=== PATIENT | female | born 1930 | race African-American/Black ===

== ENCOUNTER 2017-12-09 15:16 | Inpatient (IN) ==
[2017-12-09] MEDS ORDERED: ALBUTEROL/IPRATROPIUM 3 ML NEB RESP TX STA (15:37)
[2017-12-09] MEDS ORDERED: ORPHENADRINE 60 MG/2 ML VIAL IV STA (15:37)
[2017-12-09] MEDS ORDERED: methylPREDNISolone SOD SUC 125 MG/2 ML VIAL IV STA (15:37)
[2017-12-09] MEDS ORDERED: KETOROLAC 30 MG/1 ML VIAL IV STA (15:37)
[2017-12-09] MEDS ORDERED: ONDANSETRON 4 MG/2 ML VIAL IV STA (15:37)
[2017-12-09 15:53] LABS: Basophils % 0.4 % (0.0-0.8); Eosinophils # 0.1 10*3/uL (0.0-0.87); Eosinophils % 0.9 % (0.00-10.9); Hematocrit 36.9 VOL% (35.7-47.0); Hemoglobin 12.1 GM/DL (12.0-16.0); Immature Granulocytes % 0.4 %; Immature Granulocytes Absolute 0.03 #; Lymphocytes # 1.4 10*3/uL (1.4-4.0); Lymphocytes % 16.7 % (21.3-54.2); Mean Corpuscular HGB Conc 32.8 GM/DL (32-36); Mean Corpuscular Hemoglobin 28 PG (27-34); Mean Corpuscular Volume 85.8 FL (87-102); Mean Platelet Volume 9.3 FL (9.6-12.0); Monocytes # 0.9 10*3/uL (0.11-0.8); Monocytes % 10.2 % (1.7-12.7); Neutrophils # 6.1 10*3/uL (1.4-7.4); Neutrophils % 71.4 % (38.7-73.9); Platelet Count 137 T/CUMM (130-400); Red Cell Distribution Width 15.8 % (9.3-17.3); White Blood Count 8.5 T/CUMM (4-12)
[2017-12-09 16:06] LABS: PT Patient Result 10.7 SECS; Partial Thromboplastin Time 30.1 SECS (0-40)
[2017-12-09 16:11] LABS: Albumin 3.6 G/DL (3.4-5.0); Bilirubin,Total 0.6 MG/DL (0.2-1.0); Calcium 9.3 MG/DL (8.5-10.1); Osmolality,Calculated 282.4 MOS/KG (273-304); Potassium 4.1 MMOL/L (3.5-5.1); Total Protein 7.3 G/DL (6.4-8.3)
[2017-12-09] MEDS ORDERED: ASPIRIN 325 MG TABLET PO STA (16:23)
[2017-12-09] MEDS ORDERED: NITROGLYCERIN 2% OINT 1 INCH/GM PACK TOP STA (16:23)
[2017-12-09] MEDS ORDERED: NITROGLYCERIN 2% OINT 1 INCH/GM PACK TOP ONE (16:23)
[2017-12-09] MEDS ORDERED: ASPIRIN 325 MG TABLET ONE (16:23)
[2017-12-09] MEDS ORDERED: NITROGLYCERIN SL 0.4 MG TABLET SL PRN (17:58)
[2017-12-09] MEDS ORDERED: ZALEPLON 5 MG CAPSULE PO PRN (17:58)
[2017-12-09] MEDS ORDERED: MAGNESIUM SULF RIDER 2 GM in PREMIX 1 EACH IV PRN (19:12)
[2017-12-09] MEDS ORDERED: POTASSIUM CHLORIDE 20 MEQ TABLET PO PRN ×2 (19:12)
[2017-12-09] MEDS ORDERED: MAGNESIUM SULF RIDER 4 GM in PREMIX 1 EACH IV PRN (19:12)
[2017-12-09] MEDS ORDERED: cefTRIAXone 1,000 MG in SYRINGE 1 EACH IV SCH (20:00)
[2017-12-09] MEDS: ALBUTEROL/IPRATROPIUM 3 ML NEB RESP TX SCH (20:34)
[2017-12-09] MEDS: ATORVASTATIN 20 MG TABLET PO SCH (21:06)
[2017-12-09] MEDS: tiZANidine 4 MG TABLET PO SCH (21:06)
[2017-12-09] MEDS: METOPROLOL TARTRATE 25 MG TABLET PO SCH (21:06)
[2017-12-09] MEDS: ENOXAPARIN 80 MG/0.8 ML SYRINGE SUBCUT SCH (21:07)
[2017-12-09] MEDS: AZITHROMYCIN INJ 500 MG in SODIUM CHLORIDE 0.9% 250 ML IV SCH (21:15)
[2017-12-09 21:45] LABS: Apearance,Urine CLEAR (Clear); Bilirubin,Urine Negative (Negative); Blood, Urine Negative (Negative); Glucose,Urine (UA) 50 mg/dL (Negative); Ketones,Urine Negative (Negative); Mucus,Urine Occasional /LPF (Occasional); Nitrite,Urine Negative (Negative); Protein,Urine Negative; Squamous Epithelial Cell,Urine Occasional /HPF (0-10); Urine Color Straw (Yellow); Urine Specific Gravity 1.005 (1.001-1.035); Urine Urobilinogen < 2.0 EU/DL (0.2-1.0); WBC,Urine <1 /HPF (0-6)
[2017-12-10] MEDS: NITROGLYCERIN 2% OINT 1 INCH/GM PACK TOP SCH ×4 (00:59→18:19)
[2017-12-10] MEDS: ALBUTEROL/IPRATROPIUM 3 ML NEB RESP TX SCH ×4 (01:19→19:19)
[2017-12-10 02:56] LABS: Hematocrit 35.3 VOL% (35.7-47.0); Hemoglobin 11.6 GM/DL (12.0-16.0); Immature Granulocytes % 0.3 %; Immature Granulocytes Absolute 0.02 #; Lymphocytes # 0.6 10*3/uL (1.4-4.0); Mean Corpuscular HGB Conc 32.9 GM/DL (32-36); Mean Corpuscular Hemoglobin 28 PG (27-34); Mean Corpuscular Volume 84.9 FL (87-102); Mean Platelet Volume 9.6 FL (9.6-12.0); Monocytes # 0.1 10*3/uL (0.11-0.8); Monocytes % 1.4 % (1.7-12.7); Neutrophils # 5.6 10*3/uL (1.4-7.4); Neutrophils % 88.3 % (38.7-73.9); Platelet Count 141 T/CUMM (130-400); Red Blood Count 4.16 MC/CUMM (3.8-5.5); Red Cell Distribution Width 15.5 % (9.3-17.3); White Blood Count 6.4 T/CUMM (4-12)
[2017-12-10 03:15] LABS: Osmolality,Calculated 283.5 MOS/KG (273-304); Potassium 4.2 MMOL/L (3.5-5.1)
[2017-12-10 03:17] LABS: Risk Ratio 1.88
[2017-12-10] MEDS: LEVOTHYROXINE 50 MCG TABLET PO SCH (06:17)
[2017-12-10] MEDS ORDERED: FUROSEMIDE 40 MG/4 ML VIAL IV SCH (08:00)
[2017-12-10] MEDS ORDERED: PSEUDOEPHEDRINE 30 MG TABLET PO SCH (09:00)
[2017-12-10] MEDS: TOPIRAMATE 100 MG TABLET PO SCH (09:55)
[2017-12-10] MEDS: IRBESARTAN 150 MG TABLET PO SCH (09:55)
[2017-12-10] MEDS: METOPROLOL TARTRATE 25 MG TABLET PO SCH ×2 (09:55→21:05)
[2017-12-10] MEDS: ALPRAZolam 0.25 MG TABLET PO SCH (09:55)
[2017-12-10] MEDS: amLODIPine 5 MG TABLET PO SCH (09:55)
[2017-12-10] MEDS: CETIRIZINE 10 MG TABLET PO SCH (09:55)
[2017-12-10] MEDS: methylPREDNISolone SOD SUC 40 MG/1 ML VIAL IV SCH ×2 (09:55→21:04)
[2017-12-10] MEDS: ENOXAPARIN 80 MG/0.8 ML SYRINGE SUBCUT SCH ×3 (09:55→21:28)
[2017-12-10] MEDS: DULoxetine 20 MG CAPSULE PO SCH (09:55)
[2017-12-10] MEDS: CEFEPIME 1,000 MG in SYRINGE 1 EACH IV SCH ×2 (09:56→21:05)
[2017-12-10] MEDS: ASPIRIN CHEW 81 MG TABLET PO SCH (10:12)
[2017-12-10] MEDS: ACETAMINOPHEN 325 MG TABLET PO PRN (21:06)
[2017-12-10] MEDS: ATORVASTATIN 20 MG TABLET PO SCH (21:06)
[2017-12-10] MEDS: tiZANidine 4 MG TABLET PO SCH (21:06)
[2017-12-10] MEDS: AZITHROMYCIN INJ 500 MG in SODIUM CHLORIDE 0.9% 250 ML IV SCH (21:07)
[2017-12-11] MEDS: NITROGLYCERIN 2% OINT 1 INCH/GM PACK TOP SCH ×2 (00:12→05:43)
[2017-12-11] MEDS: ALBUTEROL/IPRATROPIUM 3 ML NEB RESP TX SCH ×4 (00:30→19:33)
[2017-12-11 03:56] LABS: Calcium 9.6 MG/DL (8.5-10.1); Potassium 4.4 MMOL/L (3.5-5.1)
[2017-12-11] MEDS: LEVOTHYROXINE 50 MCG TABLET PO SCH (06:07)
[2017-12-11] MEDS: METOPROLOL TARTRATE 25 MG TABLET PO SCH (08:55)
[2017-12-11] MEDS: ASPIRIN CHEW 81 MG TABLET PO SCH (08:55)
[2017-12-11] MEDS: IRBESARTAN 150 MG TABLET PO SCH (08:55)
[2017-12-11] MEDS: DULoxetine 20 MG CAPSULE PO SCH (08:55)
[2017-12-11] MEDS: amLODIPine 5 MG TABLET PO SCH (08:56)
[2017-12-11] MEDS: CETIRIZINE 10 MG TABLET PO SCH (08:56)
[2017-12-11] MEDS: ALPRAZolam 0.25 MG TABLET PO SCH (08:56)
[2017-12-11] MEDS: TOPIRAMATE 100 MG TABLET PO SCH (08:56)
[2017-12-11] MEDS: ENOXAPARIN 80 MG/0.8 ML SYRINGE SUBCUT SCH ×2 (08:58→21:47)
[2017-12-11] MEDS: methylPREDNISolone SOD SUC 40 MG/1 ML VIAL IV SCH ×2 (09:02→21:46)
[2017-12-11] MEDS: CEFEPIME 1,000 MG in SYRINGE 1 EACH IV SCH ×2 (09:06→21:47)
[2017-12-11] MEDS: ACETAMINOPHEN 325 MG TABLET PO PRN (14:45)
[2017-12-11] MEDS ORDERED: METOPROLOL TARTRATE 25 MG TABLET PO ONE (17:05)
[2017-12-11] MEDS: ACETAMINOPHEN 325 MG TABLET PO SCH ×2 (18:14→21:42)
[2017-12-11] MEDS: GABAPENTIN 100 MG CAPSULE PO SCH ×2 (18:15→21:44)
[2017-12-11] MEDS: AZITHROMYCIN 250 MG TABLET PO SCH (21:42)
[2017-12-11] MEDS: ATORVASTATIN 20 MG TABLET PO SCH (21:43)
[2017-12-11] MEDS: tiZANidine 4 MG TABLET PO SCH (21:44)
[2017-12-11] MEDS: METOPROLOL TARTRATE 50 MG TABLET PO SCH (21:45)
[2017-12-12] MEDS: ALBUTEROL/IPRATROPIUM 3 ML NEB RESP TX SCH ×4 (00:10→19:22)
[2017-12-12] MEDS: LEVOTHYROXINE 50 MCG TABLET PO SCH (05:51)
[2017-12-12] MEDS: TOPIRAMATE 100 MG TABLET PO SCH (09:18)
[2017-12-12] MEDS: METOPROLOL TARTRATE 50 MG TABLET PO SCH ×2 (09:19→22:04)
[2017-12-12] MEDS: ALPRAZolam 0.25 MG TABLET PO SCH (09:19)
[2017-12-12] MEDS: amLODIPine 5 MG TABLET PO SCH (09:19)
[2017-12-12] MEDS: DULoxetine 20 MG CAPSULE PO SCH (09:19)
[2017-12-12] MEDS: ASPIRIN CHEW 81 MG TABLET PO SCH (09:22)
[2017-12-12] MEDS: CETIRIZINE 10 MG TABLET PO SCH (09:22)
[2017-12-12] MEDS: GABAPENTIN 100 MG CAPSULE PO SCH ×3 (09:22→20:49)
[2017-12-12] MEDS: ENOXAPARIN 80 MG/0.8 ML SYRINGE SUBCUT SCH ×2 (09:23→20:50)
[2017-12-12] MEDS: IRBESARTAN 150 MG TABLET PO SCH (09:23)
[2017-12-12] MEDS: methylPREDNISolone SOD SUC 40 MG/1 ML VIAL IV SCH ×2 (09:56→20:45)
[2017-12-12] MEDS: CEFEPIME 1,000 MG in SYRINGE 1 EACH IV SCH ×2 (10:00→20:46)
[2017-12-12] MEDS: ACETAMINOPHEN 325 MG TABLET PO SCH ×2 (10:10→20:50)
[2017-12-12] MEDS ORDERED: NAPROXEN 250 MG TABLET PO ONE (18:47)
[2017-12-12] MEDS: tiZANidine 4 MG TABLET PO SCH (20:50)
[2017-12-12] MEDS: AZITHROMYCIN 250 MG TABLET PO SCH (20:50)
[2017-12-12] MEDS: ATORVASTATIN 20 MG TABLET PO SCH (20:50)
[2017-12-13] MEDS: ALBUTEROL/IPRATROPIUM 3 ML NEB RESP TX SCH ×4 (00:12→19:15)
[2017-12-13 02:15] LABS: Calcium 9.3 MG/DL (8.5-10.1); Osmolality,Calculated 285.4 MOS/KG (273-304)
[2017-12-13] MEDS: LEVOTHYROXINE 50 MCG TABLET PO SCH (06:19)
[2017-12-13] MEDS ORDERED: amLODIPine 10 MG TABLET PO SCH (11:08)
[2017-12-13] MEDS: ASPIRIN CHEW 81 MG TABLET PO SCH (11:10)
[2017-12-13] MEDS: IRBESARTAN 150 MG TABLET PO SCH (11:10)
[2017-12-13] MEDS: ENOXAPARIN 80 MG/0.8 ML SYRINGE SUBCUT SCH ×2 (11:11→21:16)
[2017-12-13] MEDS: METOPROLOL TARTRATE 50 MG TABLET PO SCH ×2 (11:11→21:15)
[2017-12-13] MEDS: GABAPENTIN 100 MG CAPSULE PO SCH ×3 (11:12→21:15)
[2017-12-13] MEDS: TOPIRAMATE 100 MG TABLET PO SCH (11:12)
[2017-12-13] MEDS: DULoxetine 20 MG CAPSULE PO SCH (11:12)
[2017-12-13] MEDS: ALPRAZolam 0.25 MG TABLET PO SCH (11:13)
[2017-12-13] MEDS: ACETAMINOPHEN 325 MG TABLET PO SCH ×2 (11:13→21:14)
[2017-12-13] MEDS: CETIRIZINE 10 MG TABLET PO SCH (11:14)
[2017-12-13] MEDS: methylPREDNISolone SOD SUC 40 MG/1 ML VIAL IV SCH ×2 (11:18→21:16)
[2017-12-13] MEDS: CEFEPIME 1,000 MG in SYRINGE 1 EACH IV SCH ×2 (11:23→21:16)
[2017-12-13] MEDS: amLODIPine 5 MG TABLET PO SCH (11:44)
[2017-12-13] MEDS: AZITHROMYCIN 250 MG TABLET PO SCH (21:14)
[2017-12-13] MEDS: tiZANidine 4 MG TABLET PO SCH (21:15)
[2017-12-13] MEDS: ATORVASTATIN 20 MG TABLET PO SCH (21:16)
[2017-12-14] MEDS: ALBUTEROL/IPRATROPIUM 3 ML NEB RESP TX SCH ×3 (00:59→13:24)
[2017-12-14] MEDS: LEVOTHYROXINE 50 MCG TABLET PO SCH (06:06)
[2017-12-14 06:33] LABS: Hematocrit 36.4 VOL% (35.7-47.0); Hemoglobin 11.7 GM/DL (12.0-16.0); Immature Granulocytes % 1.4 %; Immature Granulocytes Absolute 0.11 #; Lymphocytes # 1.5 10*3/uL (1.4-4.0); Lymphocytes % 19.1 % (21.3-54.2); Mean Corpuscular HGB Conc 32.1 GM/DL (32-36); Mean Corpuscular Hemoglobin 27 PG (27-34); Mean Corpuscular Volume 84.1 FL (87-102); Mean Platelet Volume 9.6 FL (9.6-12.0); Monocytes # 0.5 10*3/uL (0.11-0.8); Monocytes % 5.8 % (1.7-12.7); NRBC # 0.02 10*3/uL; Neutrophils # 5.7 10*3/uL (1.4-7.4); Neutrophils % 73.7 % (38.7-73.9); Platelet Count 163 T/CUMM (130-400); Red Blood Count 4.33 MC/CUMM (3.8-5.5); White Blood Count 7.8 T/CUMM (4-12)
[2017-12-14 07:03] LABS: Calcium 8.9 MG/DL (8.5-10.1); Osmolality,Calculated 285.3 MOS/KG (273-304)
[2017-12-14] MEDS: GABAPENTIN 100 MG CAPSULE PO SCH (08:38)
[2017-12-14] MEDS: TOPIRAMATE 100 MG TABLET PO SCH (08:38)
[2017-12-14] MEDS: ALPRAZolam 0.25 MG TABLET PO SCH (08:38)
[2017-12-14] MEDS: IRBESARTAN 150 MG TABLET PO SCH (08:38)
[2017-12-14] MEDS: DULoxetine 20 MG CAPSULE PO SCH (08:39)
[2017-12-14] MEDS: METOPROLOL TARTRATE 50 MG TABLET PO SCH (08:39)
[2017-12-14] MEDS: ASPIRIN CHEW 81 MG TABLET PO SCH (08:39)
[2017-12-14] MEDS: ACETAMINOPHEN 325 MG TABLET PO SCH (08:39)
[2017-12-14] MEDS: ENOXAPARIN 80 MG/0.8 ML SYRINGE SUBCUT SCH (08:39)
[2017-12-14] MEDS: CEFEPIME 1,000 MG in SYRINGE 1 EACH IV SCH (08:40)
[2017-12-14] MEDS: methylPREDNISolone SOD SUC 40 MG/1 ML VIAL IV SCH (08:40)
[2017-12-14] MEDS: CETIRIZINE 10 MG TABLET PO SCH (08:40)
[2017-12-14 11:59] VITALS: BP 116/56
[2017-12-14] MEDS ORDERED: LACTULOSE 20 GM/30 ML UDCUP PO ONE (12:40)
[2017-12-14] MEDS ORDERED: INFLUENZA VIRUS VACCINE 0.5 ML SYRINGE IM ONE (14:09)
== END 2017-12-14 18:36 | disposition home or self-care (01) | DRG 191 ==
LOC: N.ED 15:16 → N.EDINP 18:11 → SUATTDRO 18:11 → N.TELEN 18:34
PROVIDERS: ADMIT Internal Medicine; ATTEND Internal Medicine Infectious Disease